=== PATIENT | male | born 1950 | race Caucasian/White ===

== ENCOUNTER 2019-12-06 10:30 | Inpatient (IN) | payer OTHER ==
[~2019-12-06] VITALS: Ht 162.6 cm; Wt 70.3 kg
[2019-12-06] MEDS ORDERED: COUMADIN2.5 MG PO (11:31)
[2019-12-06] MEDS ORDERED: COUMADIN3 MG PO (11:32)
[2019-12-18] MEDS ORDERED: PRILOSEC OTC20 MG PO (10:26)
[2019-12-18] MEDS ORDERED: ACETAMINOPHEN500 M2 PO (10:26)
== END 2019-12-18 10:32 | disposition home or self-care (01) | DRG 331 ==
LOC: O/R 12-11 06:00 → SURH 12-11 06:00 → O/R 12-11 10:30 → SURH 12-11 16:22
PROVIDERS: ADMIT Surgery
PROC: 0D1B4Z4 Bypass Ileum to Cutaneous, Percutaneous Endoscopic Approach (ICD-10-PCS; 2019-12-11)
PROC: 07BC4ZX Excision of Pelvis Lymphatic, Percutaneous Endoscopic Approach, Diagnostic (ICD-10-PCS; 2019-12-11)
PROC: 0DBP4ZZ Excision of Rectum, Percutaneous Endoscopic Approach (ICD-10-PCS; principal; 2019-12-11 11:00)
DX: C20 Malignant neoplasm of rectum (principal); Z79.01 Long term (current) use of anticoagulants; Z95.2 Presence of prosthetic heart valve

== ENCOUNTER 2020-04-03 07:26 | Outpatient (CLI) | payer OTHER ==
[~2020-04-03 07:26] MED LIST: ACETAMINOPHEN500 M2 PO; COUMADIN2.5 MG PO; COUMADIN3 MG PO; PRILOSEC OTC20 MG PO
== END 2020-04-03 07:31 | disposition home or self-care (01) ==
LOC: RX STUDY 07:26
PROVIDERS: ATTEND Surgery
DX: C20 Malignant neoplasm of rectum (principal); R59.0 Localized enlarged lymph nodes; K62.5 Hemorrhage of anus and rectum

== ENCOUNTER 2020-04-11 14:45 | Inpatient (IN) | payer OTHER ==
[~2020-04-11] VITALS: Ht 162.6 cm; Wt 73.5 kg
[2020-04-23] MEDS ORDERED: COUMADIN2.5 MG PO (13:15)
== END 2020-04-23 14:35 | disposition home or self-care (01) | DRG 330 ==
LOC: SURH 04-18 08:20 → O/R 04-18 08:20 → SURH 04-18 14:45
PROVIDERS: ADMIT Surgery; ATTEND Surgery
PROC: 0DSB0ZZ Reposition Ileum, Open Approach (ICD-10-PCS; principal; 2020-04-18 08:00)
PROC: BW28ZZZ Computerized Tomography (CT Scan) of Head (ICD-10-PCS; 2020-04-22)
DX: Z43.2 Encounter for attention to ileostomy (principal); C20 Malignant neoplasm of rectum; Z79.01 Long term (current) use of anticoagulants; Z95.2 Presence of prosthetic heart valve; R41.0 Disorientation, unspecified

== ENCOUNTER 2020-04-17 08:48 | Outpatient (CLI) | payer OTHER | END 2020-04-17 15:16 | disposition home or self-care (01) | LOC: LAB 08:48 | PROVIDERS: ATTEND Surgery | DX: D68.8 Other specified coagulation defects (principal); Z93.3 Colostomy status ==

== ENCOUNTER → 2020-04-17 | Day surgery (SDC) | payer OTHER | END | disposition home or self-care (01) | LOC: AMB-ENDOS 09:11 | PROVIDERS: ATTEND Surgery | DX: K62.89 Other specified diseases of anus and rectum (principal) ==

== ENCOUNTER 2021-02-23 05:55 | Day surgery (SDC) | payer OTHER | END 2021-02-23 10:10 | disposition home or self-care (01) | LOC: AMB-ENDOS 05:55 | PROVIDERS: ATTEND Surgery | DX: K62.89 Other specified diseases of anus and rectum (principal); Z93.3 Colostomy status; Z20.822 Contact with and (suspected) exposure to COVID-19 ==